=== PATIENT | male | born 1945 | race African-American/Black ===

== ENCOUNTER 2020-08-08 14:08 | Inpatient (IN) ==
[2020-08-08 14:38] LABS: Basophils % 0.1 % (0.0-0.8); Eosinophils # 0.1 10*3/uL (0.0-0.87); Eosinophils % 0.5 % (0.00-10.9); Hematocrit 38.9 VOL% (42.0-52.0); Hemoglobin 12.7 GM/DL (14.0-18.0); Immature Granulocytes % 0.4 %; Immature Granulocytes Absolute 0.04 #; Lymphocytes # 1.8 10*3/uL (1.4-4.0); Lymphocytes % 17.7 % (21.2-54.2); Mean Corpuscular HGB Conc 32.6 GM/DL (32-36); Mean Corpuscular Volume 82.4 FL (87-102); Mean Platelet Volume 8.6 FL (9.6-12.0); Neutrophils % 74.3 % (38.7-73.9); Platelet Count 294 T/CUMM (130-400); Red Blood Count 4.72 MC/CUMM (3.8-5.5); Red Cell Distribution Width 13.9 % (9.3-17.3); White Blood Count 10.2 T/CUMM (4-12)
[2020-08-08 15:01] LABS: Alanine Aminotransferase 29 U/L (16-61); Albumin 3.1 G/DL (3.4-5.0); Alkaline Phosphatase 103 U/L (45-117); Aspartate Amino Transferase 22 U/L (0-37); Blood Urea Nitrogen 18 MG/DL (7-18); Calcium 9.5 MG/DL (8.5-10.1); Estimated Glom Filtration Rate 112 ML/MIN; Glucose 159 MG/DL (74-106); Osmolality,Calculated 277.8 MOS/KG (273-304); Total Protein 8.4 G/DL (6.4-8.3)
[2020-08-08 15:24] LABS: INR 1.1; PT Patient Result 11.4 SECS (9.8-11.9); Partial Thromboplastin Time 22.5 SECS (23.9-33.8)
[2020-08-08 15:29] LABS: Barbiturates Screen,Urine Negative (Negative); Benzodiazepines Screen,Urine Negative (Negative); Cannabinoid Screen,Urine Negative (Negative); Opiate Screen,Urine Negative (Negative); Phencyclidine Screen,Urine Negative (Negative)
[2020-08-08 15:34] LABS: Glucose,Urine (UA) Negative (Negative); Ketones,Urine 20 mg/dL (Negative); Protein,Urine Negative; Urine Appearance Clear (Clear); Urine Color Amber (Yellow); Urine Specific Gravity 1.025 (1.001-1.035)
[2020-08-08 15:35] LABS: Bilirubin,Urine Negative (Negative); Blood, Urine Moderate mg/dL (Negative); Nitrite,Urine Negative (Negative); RBC,Urine Occasional /HPF (0-4); Squamous Epithelial Cell,Urine Rare /HPF (0-10); Urine Urobilinogen < 2.0 EU/DL (0.2-1.0); WBC,Urine Negative /HPF (0-6)
[2020-08-08] MEDS ORDERED: SODIUM CHLORIDE 0.9% 2,000 ML IV ONE (17:46)
[2020-08-08] MEDS ORDERED: cefTRIAXone 1,000 MG in SYRINGE 1 EACH IV SCH (18:00)
[2020-08-08] MEDS ORDERED: AZITHROMYCIN INJ 500 MG in SODIUM CHLORIDE 0.9% 250 ML IV SCH (18:00)
[2020-08-08] MEDS ORDERED: GLUCAGON 1 MG VIAL IM PRN (18:20)
[2020-08-08] MEDS ORDERED: DEXTROSE 50% 25 GM/50 ML VIAL IV PRN (18:20)
[2020-08-08] MEDS ORDERED: dilTIAZem Drip 125 MG/125 ML PREMIX IV SCH (18:30)
[2020-08-08] MEDS: SODIUM CHLORIDE 0.9% 1,000 ML IV SCH (20:47)
[2020-08-08] MEDS: ENOXAPARIN 120 MG/0.8 ML SYRINGE SUBCUT SCH (20:48)
[2020-08-08] MEDS: INSULIN REGULAR 100 UNIT/ML SUBCUT SCH (23:46)
[2020-08-09 05:39] LABS: Basophils % 0.2 % (0.0-0.8); Eosinophils % 0.2 % (0.00-10.9); Hematocrit 33.4 VOL% (42.0-52.0); Hemoglobin 11.1 GM/DL (14.0-18.0); Immature Granulocytes % 0.6 %; Immature Granulocytes Absolute 0.05 #; Lymphocytes # 1.2 10*3/uL (1.4-4.0); Lymphocytes % 12.9 % (21.2-54.2); Mean Corpuscular HGB Conc 33.2 GM/DL (32-36); Mean Corpuscular Volume 83.3 FL (87-102); Mean Platelet Volume 9.3 FL (9.6-12.0); Monocytes % 8.2 % (1.7-12.7); Neutrophils % 77.9 % (38.7-73.9); Platelet Count 250 T/CUMM (130-400); Red Blood Count 4.01 MC/CUMM (3.8-5.5)
[2020-08-09 06:05] LABS: Albumin 2.5 G/DL (3.4-5.0); Bilirubin,Total 0.7 MG/DL (0.2-1.0); Calcium 8.9 MG/DL (8.5-10.1); Osmolality,Calculated 283.4 MOS/KG (273-304); Total Protein 6.8 G/DL (6.4-8.3)
[2020-08-09 06:16] LABS: Risk Ratio 2.79; VLDL CHOLESTEROL 12.8 MG/DL
[2020-08-09] MEDS: INSULIN REGULAR 100 UNIT/ML SUBCUT SCH ×3 (06:29→17:15)
[2020-08-09] MEDS: ENOXAPARIN 120 MG/0.8 ML SYRINGE SUBCUT SCH (07:08)
[2020-08-09] MEDS: SODIUM CHLORIDE 0.9% 1,000 ML IV SCH ×2 (08:24→17:49)
[2020-08-09] MEDS: ASPIRIN CHEW 81 MG TABLET PO SCH (08:25)
[2020-08-09] MEDS: ATORVASTATIN 40 MG TABLET PO SCH (21:20)
[2020-08-10] MEDS: INSULIN REGULAR 100 UNIT/ML SUBCUT SCH ×4 (01:57→18:26)
[2020-08-10] MEDS: SODIUM CHLORIDE 0.9% 1,000 ML IV SCH ×4 (03:00→20:40)
[2020-08-10 06:40] LABS: Basophils % 0.2 % (0.0-0.8); Eosinophils # 0.1 10*3/uL (0.0-0.87); Eosinophils % 0.6 % (0.00-10.9); Hematocrit 33.4 VOL% (42.0-52.0); Hemoglobin 10.8 GM/DL (14.0-18.0); Immature Granulocytes % 0.4 %; Immature Granulocytes Absolute 0.04 #; Lymphocytes # 1.5 10*3/uL (1.4-4.0); Lymphocytes % 16.2 % (21.2-54.2); Mean Corpuscular HGB Conc 32.3 GM/DL (32-36); Mean Corpuscular Volume 84.1 FL (87-102); Mean Platelet Volume 9.4 FL (9.6-12.0); Monocytes % 8.8 % (1.7-12.7); Neutrophils % 73.8 % (38.7-73.9); Platelet Count 218 T/CUMM (130-400); Red Blood Count 3.97 MC/CUMM (3.8-5.5); Red Cell Distribution Width 13.9 % (9.3-17.3); White Blood Count 9.3 T/CUMM (4-12)
[2020-08-10 07:04] LABS: Albumin 2.3 G/DL (3.4-5.0); Bilirubin,Total 0.6 MG/DL (0.2-1.0); Calcium 8.9 MG/DL (8.5-10.1); Osmolality,Calculated 280.4 MOS/KG (273-304); Total Protein 6.7 G/DL (6.4-8.3)
[2020-08-10] MEDS: ASPIRIN CHEW 81 MG TABLET PO SCH (08:57)
[2020-08-10] MEDS: ENOXAPARIN 40 MG/0.4 ML SYRINGE SUBCUT SCH (20:37)
[2020-08-10] MEDS: ATORVASTATIN 40 MG TABLET PO SCH (21:34)
[2020-08-11] MEDS: SODIUM CHLORIDE 0.9% 1,000 ML IV SCH ×4 (00:30→23:49)
[2020-08-11] MEDS: INSULIN REGULAR 100 UNIT/ML SUBCUT SCH ×4 (00:59→18:09)
[2020-08-11 06:30] LABS: Basophils % 0.2 % (0.0-0.8); Eosinophils % 0.3 % (0.00-10.9); Hematocrit 30.6 VOL% (42.0-52.0); Hemoglobin 9.9 GM/DL (14.0-18.0); Immature Granulocytes % 0.5 %; Immature Granulocytes Absolute 0.04 #; Lymphocytes % 11.4 % (21.2-54.2); Mean Corpuscular HGB Conc 32.4 GM/DL (32-36); Mean Corpuscular Volume 83.4 FL (87-102); Mean Platelet Volume 9.4 FL (9.6-12.0); Monocytes % 8.9 % (1.7-12.7); Neutrophils % 78.7 % (38.7-73.9); Platelet Count 188 T/CUMM (130-400); Red Blood Count 3.67 MC/CUMM (3.8-5.5); Red Cell Distribution Width 13.9 % (9.3-17.3); White Blood Count 8.8 T/CUMM (4-12)
[2020-08-11 06:47] LABS: Albumin 2.2 G/DL (3.4-5.0); Bilirubin,Total 1.1 MG/DL (0.2-1.0); Calcium 9.1 MG/DL (8.5-10.1); Osmolality,Calculated 288.8 MOS/KG (273-304); Total Protein 6.6 G/DL (6.4-8.3)
[2020-08-11] MEDS: ASPIRIN CHEW 81 MG TABLET PO SCH (09:17)
[2020-08-11] MEDS ORDERED: cefTRIAXone 2,000 MG in SYRINGE 1 EACH IV SCH (10:00)
[2020-08-11 11:19] LABS: Bilirubin,Urine Negative (Negative); Blood, Urine Large mg/dL (Negative); Glucose,Urine (UA) Negative (Negative); Ketones,Urine 20 mg/dL (Negative); Mucus,Urine Occasional /LPF (Occasional); Nitrite,Urine Negative (Negative); Protein,Urine 100 MG/DL; RBC,Urine 2449 /HPF (0-4); Urine Appearance Slightly Hazy (Clear); Urine Color Amber (Yellow); Urine Specific Gravity 1.025 (1.001-1.035); Urine Urobilinogen < 2.0 EU/DL (0.2-1.0); WBC,Urine 26 /HPF (0-6)
[2020-08-11] MEDS ORDERED: VANCOMYCIN INJ 1,000 MG in SODIUM CHLORIDE 0.9% 250 ML IV SCH (14:00)
[2020-08-11] MEDS: VANCOMYCIN INJ 1,750 MG in SODIUM CHLORIDE 0.9% 500 ML IV SCH (14:47)
[2020-08-11] MEDS ORDERED: ACETAMINOPHEN 325 MG SUPP RECTAL PRN (15:08)
[2020-08-11] MEDS: ATORVASTATIN 40 MG TABLET PO SCH (20:10)
[2020-08-11] MEDS: ENOXAPARIN 40 MG/0.4 ML SYRINGE SUBCUT SCH (20:12)
[2020-08-12] MEDS: INSULIN REGULAR 100 UNIT/ML SUBCUT SCH ×4 (01:51→18:09)
[2020-08-12] MEDS: SODIUM CHLORIDE 0.9% 1,000 ML IV SCH ×2 (04:10→18:09)
[2020-08-12 06:14] LABS: Basophils % 0.3 % (0.0-0.8); Eosinophils # 0.1 10*3/uL (0.0-0.87); Eosinophils % 0.7 % (0.00-10.9); Hematocrit 31.8 VOL% (42.0-52.0); Hemoglobin 10.2 GM/DL (14.0-18.0); Immature Granulocytes % 0.1 %; Immature Granulocytes Absolute 0.01 #; Lymphocytes % 14.5 % (21.2-54.2); Mean Corpuscular HGB Conc 32.1 GM/DL (32-36); Mean Corpuscular Volume 84.1 FL (87-102); Mean Platelet Volume 9.8 FL (9.6-12.0); Monocytes % 9.5 % (1.7-12.7); Neutrophils % 74.9 % (38.7-73.9); Platelet Count 192 T/CUMM (130-400); Red Blood Count 3.78 MC/CUMM (3.8-5.5); Red Cell Distribution Width 13.9 % (9.3-17.3); White Blood Count 7.2 T/CUMM (4-12)
[2020-08-12 06:36] LABS: Albumin 2.1 G/DL (3.4-5.0); Bilirubin,Total 0.5 MG/DL (0.2-1.0); Calcium 9.2 MG/DL (8.5-10.1); Osmolality,Calculated 289.8 MOS/KG (273-304); Total Protein 6.8 G/DL (6.4-8.3)
[2020-08-12] MEDS: ASPIRIN CHEW 81 MG TABLET PO SCH (08:03)
[2020-08-12] MEDS: VANCOMYCIN INJ 1,750 MG in SODIUM CHLORIDE 0.9% 500 ML IV SCH (10:24)
[2020-08-12] MEDS: ATORVASTATIN 40 MG TABLET PO SCH (21:20)
[2020-08-13] MEDS: VANCOMYCIN INJ 1,750 MG in SODIUM CHLORIDE 0.9% 500 ML IV SCH ×2 (01:47→20:32)
[2020-08-13] MEDS: INSULIN REGULAR 100 UNIT/ML SUBCUT SCH ×4 (01:50→17:50)
[2020-08-13 05:48] LABS: Basophils % 0.3 % (0.0-0.8); Eosinophils # 0.1 10*3/uL (0.0-0.87); Eosinophils % 1.3 % (0.00-10.9); Hematocrit 32.4 VOL% (42.0-52.0); Hemoglobin 10.6 GM/DL (14.0-18.0); Immature Granulocytes % 0.3 %; Immature Granulocytes Absolute 0.02 #; Lymphocytes # 0.9 10*3/uL (1.4-4.0); Lymphocytes % 15.8 % (21.2-54.2); Mean Corpuscular HGB Conc 32.7 GM/DL (32-36); Mean Corpuscular Volume 83.7 FL (87-102); Mean Platelet Volume 9.9 FL (9.6-12.0); Monocytes % 8.4 % (1.7-12.7); Neutrophils % 73.9 % (38.7-73.9); Platelet Count 183 T/CUMM (130-400); Red Blood Count 3.87 MC/CUMM (3.8-5.5); Red Cell Distribution Width 13.8 % (9.3-17.3)
[2020-08-13 05:55] LABS: INR 1.1
[2020-08-13 06:20] LABS: Bilirubin,Total 0.5 MG/DL (0.2-1.0); Calcium 9.1 MG/DL (8.5-10.1); Osmolality,Calculated 291.7 MOS/KG (273-304); Total Protein 6.7 G/DL (6.4-8.3)
[2020-08-13] MEDS: SODIUM CHLORIDE 0.9% 1,000 ML IV SCH ×3 (07:18→20:30)
[2020-08-13] MEDS ORDERED: ceFAZolin 1,000 MG in SYRINGE 1 EACH IV ONE (08:00)
[2020-08-13] MEDS: ASPIRIN CHEW 81 MG TABLET PO SCH (09:52)
[2020-08-13] MEDS: LACTATED RINGERS 1,000 ML IV SCH (10:19)
[2020-08-13] MEDS ORDERED: propofoL 200 MG/20 ML VIAL IV ONE (10:48)
[2020-08-13] MEDS ORDERED: ETOMIDATE 20 MG/10 ML VIAL IV ONE (10:48)
[2020-08-13] MEDS ORDERED: LIDOCAINE 2% 5 ML VIAL ONE (10:48)
[2020-08-13] MEDS ORDERED: TUBERCULIN SKIN TEST 0.1 ML SYRINGE INTRADERM ONE (10:58)
[2020-08-13] MEDS ORDERED: ONDANSETRON 4 MG/2 ML VIAL IV PRN (17:42)
[2020-08-13] MEDS: ATORVASTATIN 40 MG TABLET PO SCH (20:36)
[2020-08-14] MEDS: INSULIN REGULAR 100 UNIT/ML SUBCUT SCH ×5 (01:10→23:25)
[2020-08-14 06:58] LABS: Calcium 8.9 MG/DL (8.5-10.1); Osmolality,Calculated 289.8 MOS/KG (273-304)
[2020-08-14] MEDS: SODIUM CHLORIDE 0.9% 1,000 ML IV SCH ×3 (08:29→21:03)
[2020-08-14] MEDS ORDERED: APIXABAN 5 MG TABLET PO SCH (09:30)
[2020-08-14] MEDS: ASPIRIN CHEW 81 MG TABLET PO SCH (10:22)
[2020-08-14] MEDS: APIXABAN 5 MG TABLET PO SCH ×2 (10:22→21:03)
[2020-08-14] MEDS: LACTATED RINGERS 1,000 ML IV SCH (17:51)
[2020-08-14] MEDS: ATORVASTATIN 40 MG TABLET PO SCH (21:03)
[2020-08-15] MEDS: SODIUM CHLORIDE 0.9% 1,000 ML IV SCH ×2 (00:36→11:15)
[2020-08-15] MEDS: INSULIN REGULAR 100 UNIT/ML SUBCUT SCH ×3 (06:51→18:27)
[2020-08-15] MEDS: APIXABAN 5 MG TABLET PO SCH ×2 (08:57→21:03)
[2020-08-15] MEDS: ASPIRIN CHEW 81 MG TABLET PO SCH (08:57)
[2020-08-15] MEDS ORDERED: FUROSEMIDE 20 MG/2 ML VIAL IV ONE (11:13)
[2020-08-15] MEDS: ATORVASTATIN 40 MG TABLET PO SCH (21:03)
[2020-08-16] MEDS: INSULIN REGULAR 100 UNIT/ML SUBCUT SCH ×4 (00:04→17:44)
[2020-08-16 06:56] LABS: Basophils % 0.3 % (0.0-0.8); Eosinophils # 0.2 10*3/uL (0.0-0.87); Eosinophils % 2.4 % (0.00-10.9); Hematocrit 30.7 VOL% (42.0-52.0); Hemoglobin 9.8 GM/DL (14.0-18.0); Immature Granulocytes % 0.5 %; Immature Granulocytes Absolute 0.03 #; Lymphocytes # 1.1 10*3/uL (1.4-4.0); Mean Corpuscular HGB Conc 31.9 GM/DL (32-36); Mean Corpuscular Volume 84.8 FL (87-102); Mean Platelet Volume 10.3 FL (9.6-12.0); Monocytes % 9.5 % (1.7-12.7); Neutrophils % 70.3 % (38.7-73.9); Platelet Count 185 T/CUMM (130-400); Red Blood Count 3.62 MC/CUMM (3.8-5.5); White Blood Count 6.6 T/CUMM (4-12)
[2020-08-16 07:19] LABS: Calcium 8.9 MG/DL (8.5-10.1); Osmolality,Calculated 291.1 MOS/KG (273-304)
[2020-08-16] MEDS: ASPIRIN CHEW 81 MG TABLET PO SCH (09:04)
[2020-08-16] MEDS: APIXABAN 5 MG TABLET PO SCH ×2 (09:05→21:30)
[2020-08-16] MEDS: ATORVASTATIN 40 MG TABLET PO SCH (21:30)
[2020-08-17] MEDS: INSULIN REGULAR 100 UNIT/ML SUBCUT SCH ×4 (01:21→17:50)
[2020-08-17 06:29] LABS: Basophils % 0.2 % (0.0-0.8); Eosinophils # 0.2 10*3/uL (0.0-0.87); Eosinophils % 3.1 % (0.00-10.9); Hematocrit 31.5 VOL% (42.0-52.0); Hemoglobin 9.9 GM/DL (14.0-18.0); Immature Granulocytes % 0.7 %; Immature Granulocytes Absolute 0.04 #; Lymphocytes # 1.1 10*3/uL (1.4-4.0); Lymphocytes % 18.3 % (21.2-54.2); Mean Corpuscular HGB Conc 31.4 GM/DL (32-36); Mean Corpuscular Volume 85.8 FL (87-102); Mean Platelet Volume 10.1 FL (9.6-12.0); Monocytes % 10.9 % (1.7-12.7); Neutrophils % 66.8 % (38.7-73.9); Platelet Count 206 T/CUMM (130-400); Red Blood Count 3.67 MC/CUMM (3.8-5.5); Red Cell Distribution Width 13.9 % (9.3-17.3); White Blood Count 6.1 T/CUMM (4-12)
[2020-08-17 06:47] LABS: Calcium 8.9 MG/DL (8.5-10.1); Osmolality,Calculated 289.4 MOS/KG (273-304)
[2020-08-17 07:42] LABS: Calcium 8.6 MG/DL (8.5-10.1); Osmolality,Calculated 289.4 MOS/KG (273-304)
[2020-08-17] MEDS: APIXABAN 5 MG TABLET PO SCH ×2 (09:01→22:01)
[2020-08-17] MEDS: ASPIRIN CHEW 81 MG TABLET PO SCH (09:01)
[2020-08-17] MEDS ORDERED: carvediloL 6.25 MG TABLET PO SCH (12:00)
[2020-08-17] MEDS: hydroCHLOROthiazide 25 MG TABLET PO SCH (12:41)
[2020-08-17] MEDS: METOPROLOL TARTRATE 100 MG TABLET PO SCH ×2 (12:42→22:02)
[2020-08-17] MEDS: ATORVASTATIN 40 MG TABLET PO SCH (22:02)
[2020-08-18] MEDS: INSULIN REGULAR 100 UNIT/ML SUBCUT SCH ×4 (01:54→17:35)
[2020-08-18] MEDS: METOPROLOL TARTRATE 100 MG TABLET PO SCH (09:13)
[2020-08-18] MEDS: hydroCHLOROthiazide 25 MG TABLET PO SCH (09:13)
[2020-08-18] MEDS: ASPIRIN CHEW 81 MG TABLET PO SCH (09:13)
[2020-08-18] MEDS: APIXABAN 5 MG TABLET PO SCH (09:13)
[2020-08-18 15:44] VITALS: BP 127/72
[2020-08-18] MEDS ORDERED: INSULIN GLARGINE 100 UNIT/ML SUBCUT SCH (21:00)
== END 2020-08-18 18:30 | DRG 65 ==
LOC: SUATTDRO → N.ED 14:08 → N.EDINP 18:01 → SUATTDRO 18:01 → N.TELES 18:40
PROVIDERS: ADMIT Internal Medicine Geriatric Medicine; ATTEND Internal Medicine
PROC: EGDWPEG (ICD-10-PCS; 2020-08-13 09:35)